=== PATIENT | male | born 1950 | race Caucasian/White ===

== ENCOUNTER 2016-06-22 10:36 | Outpatient (CLI) | payer MEDICARE ==
--- NOTE | 2016-06-22 14:40 | Ultrasound Report ---
Limited abdominal ultrasound: Hepatitis C. Images of the liver and pancreas are unremarkable. The gallbladder is mildly patulous with echogenic material layering on the dependent wall questionable shadowing. The gallbladder wall is not thickened. The CBD measures 4 mm. The right renal length is 10 cm. The kidney appears somewhat echogenic and there is a 1 cm cyst in the superior pole. The transverse diameter of the proximal abdominal aorta is 2.1 cm. Compared to the prior exam in August 2015 the findings appears similar including the gallbladder echogenicity. Impressions: 1. Unremarkable liver. 2. Probable poorly shadowing gallstones.
== END 2016-06-22 10:37 | disposition home or self-care (01) ==
LOC: US 10:36
PROVIDERS: ATTEND Internal Medicine Gastroenterology
DX: B18.2 Chronic viral hepatitis C (principal); E83.119 Hemochromatosis, unspecified; K74.60 Unspecified cirrhosis of liver
CPT/HCPCS: 76705

== ENCOUNTER 2017-02-21 09:48 | Day surgery (SDC) | payer MEDICARE ==
[2017-02-21] MEDS ORDERED: XYLOCAINE MPF 2% ONE (10:30)
--- NOTE | 2017-02-21 10:31 | Anesthesia Consultation ---
Anesthesia Consult and Med Hx Date of service: 02/21/17 - Airway Anesthetic Teeth Evaluation: Poor ROM Head & Neck: Adequate Mental/Hyoid Distance: Adequate Mallampati Class: Class II Intubation Access Assessment: Probably Good - Pulmonary Exam CTA: Yes - Cardiac Exam Cardiac Exam: RRR - Pre-Operative Health Status ASA Pre-Surgery Classification: ASA3 Proposed Anesthetic Plan: MAC - Pulmonary Hx Smoking: Yes (cigars) Hx Asthma: Yes (as a child) COPD: No Hx Pneumonia: Yes Hx Sleep Apnea: Yes - Cardiovascular System Hx Hypertension: Yes (patient states "enlarged heart" - asymptomatic) Hx Peripheral Vascular Disease: No - Central Nervous System Hx Neuromuscular Disorder: No Hx Psychiatric Problems: Yes (anxiety) - Gastrointestinal Hx Gastroesophageal Reflux Disease: No - Endocrine Hx Cirrhosis: Yes Hx Liver Disease: Yes (HEPATITIS C) Hx Non-Insulin Dependent Diabetes: Yes (diet controlled) - Hematic Hx Anemia: Yes Hx Sickle Cell Disease: No - Other Systems Hx Alcohol Use: Yes Hx Substance Use: No Hx Cancer: No Hx Obesity: No
--- NOTE | 2017-02-21 10:31 | Anesthesia Day of Surgery ---
Anesthesia Day of Surgery - Day of Surgery Patient Examined: Yes Patient H&P Reviewed: Yes Patient is NPO: Yes
[2017-02-21] MEDS ORDERED: DIPRIVAN 10 MG/ML IV ONE ×2 (10:33)
[2017-02-21] MEDS ORDERED: NACL 0.9% 1000 ML 1,000 ML IV SCH (11:00)
--- NOTE | 2017-02-21 11:04 | Short Stay Summary ---
Short Stay Documentation Date of service: 02/21/17 Narrative H&P: 66 year old man with cirrhosis due to hepatitis C and history of large esophageal varices. Now for surveillance endoscopy to obliterate varices. - History Past Medical History: diabetes, other (Cirrhosis secondary to hepatitis C. Depression, asthma, anxiety disorder) Past Surgical History: hernia repair Social history: single, Lives alone - Allergies and Medications Current Medications: Allergies ampicillin Allergy (Verified 02/04/14 11:09) Unknown Home Medications Medication Instructions Recorded Confirmed Last Taken Type RX: Ziprasidone HCl [Geodon] 1 cap PO DAILY 03/02/13 04/10/14 02/20/17 21:00 History RX: Folic Acid 1 tab PO DAILY 11/14/13 04/10/14 04/09/14 History 1 tab RX: Lisinopril 1 tab PO DAILY 11/14/13 04/10/14 02/21/17 History RX: Benztropine [Cogentin] 1 mg PO BID 02/04/14 04/10/14 04/09/14 History 1mg Active Medications Sodium Chloride (Nacl 0.9% 1000 Ml) 1,000 mls @ 50 mls/hr IV DIRECT AP - Physical exam General appearance: no acute distress, well-nourished Integumentary: no rash, no growths, no abnormal pigmentation HEENT: Atraumatic, PERRLA, EOMI, Mucous membr. moist/pink Lungs: Clear to auscultation, Normal air movement Breasts: deferred Heart: Regular rate, Normal S1, No murmurs, Murmur Gastrointestinal: normoactive bowel sounds, no tenderness, no masses, no organomegaly, no hepatomegaly, no splenomegaly Male Genitourinary: deferred Rectal Exam: deferred Extremities: no ischemia, pulses intact, pulses symmetrical, No edema, Full ROM Neurological: Normal gait, Normal speech, Strength at 5/5 X4 ext, Normal tone, Sensation intact, Cranial nerves 3-12 NL - Brief post op/procedure progress note Date of procedure: 02/21/17 Findings: see dictated report Estimated blood loss: none Pathology: list (antral biopsies for h .pylori) Specimen disposition: to lab Condition: stable - Disposition Condition at discharge: Good Disposition: DC- TO HOME OR SELFCARE - Discharge Diagnoses (1) Esophageal varices determined by endoscopy Status: Acute (2) Cirrhosis of liver due to hepatitis C Status: Acute Short Stay Discharge Plan Activity: other (no driving for 24 hours) Weight Bearing Status: Weight Bear as Tolerated Diet: other (soft mechanical, advance as tolerated) Follow up with: CAMRON SMITH MD [Primary Care Provider] - 7 Days
--- NOTE | 2017-02-21 11:09 | Operative Report ---
Operative Report Operative Report: Date of procedure: 02/21/2017 Procedure: Esophagogastroduodenoscopy with biopsies of the antrum for H. pylori and banding 5 of distal esophageal varices. Preprocedure diagnosis: History of esophageal varices. Post procedure diagnosis: 3+ esophageal varices some with thin-walled red spots. Small varices in the fundus of the stomach. Portal hypertension gastropathy. Antral gastritis. Endoscopist: Dr. Hidalgo Anesthesia: Monitored anesthesia care per anesthesia department Medications: Propofol per anesthesia. Estimated blood loss: A 0 After careful discussion of the nature and purpose of the procedure as well as details the technique risks benefits and alternatives consent was obtained. The patient was placed in the left lateral decubitus position and medicated per anesthesia. The tip of the [place] 570 video scope was passed per orum under direct vision into the esophagus and advanced into the stomach and descending duodenum. The descending duodenum the duodenal bulb and pylorus were symmetrical and normal. The scope was withdrawn into the stomach and the stomach then gently insufflated with air. The antrum revealed patchy erythema and multiple punctate erosions. 3 biopsies were taken in the prepyloric area for H. pylori testing. The stomach was further insufflated and the scope was then retroflexed and partially withdrawn. The cardia, fundus, and body of the stomach were easily distensible. There was vascular congestion consistent with portal hypertension gastropathy and 1-2+ varices in the fundus of the stomach. The scope was then withdrawn in the forward position. The esophagogastric junction was at 42 cm. 3+ varices were present in the distal third of the esophagus some of which have thin-walled red spots present which were likely reflective of a greater tendency to bleed. There was no active bleeding however at the time of this study. There are small varices in the middle third of the esophagus in the proximal esophagus appeared normal. In light of the large varices and risk for bleeding banding was performed. The scope was initially withdrawn and the banding device loaded. The scope was then reintroduced to the esophagogastric junction and bands placed in a circumferential fashion. 5 bands were placed over all in the distal third of the esophagus. No bleeding was encountered. The procedure was was well tolerated and the patient was observed in recovery. Impressions: 3+ varices in the distal esophagus some of which had red spots and thin rivera. Status post banding. Portal hypertension gastropathy and small varices in the fundus of the stomach. Antral gastritis present. Plan: Await biopsies for H. pylori testing. Continue beta lisa therapy. Repeat endoscopy and banding in 3 months. Electronically signed: Fili Hidalgo MD
[2017-02-21] MEDS ORDERED: WATER FOR IRRIG STERILE IR ONE (11:10)
[2017-02-21 11:35] VITALS: BP 172/87
--- NOTE | 2017-02-21 12:23 | Post Anesthesia Evaluation ---
- Post Anesthesia Evaluation Patient Participated: Yes Airway Patent: Yes Stable Respiratory Function: Yes Nausea/Vomiting: No Temp > 96.8F: Yes Pain Manageable: Yes Adequeate Hydration: Yes Anesthesia Complications: No Block Receding Appropriately: Not Applicable Patient on Ventilator: No
== END 2017-02-21 09:49 | disposition home or self-care (01) ==
LOC: GIO 09:48
PROVIDERS: ATTEND Internal Medicine Gastroenterology
DX: I85.00 Esophageal varices without bleeding (principal); K70.30 Alcoholic cirrhosis of liver without ascites; K76.6 Portal hypertension; K31.89 Other diseases of stomach and duodenum; K29.50 Unspecified chronic gastritis without bleeding; I86.4 Gastric varices; I11.9 Hypertensive heart disease without heart failure; E11.9 Type 2 diabetes mellitus without complications; B19.20 Unspecified viral hepatitis C without hepatic coma; J45.909 Unspecified asthma, uncomplicated; G47.30 Sleep apnea, unspecified; F41.9 Anxiety disorder, unspecified; F32.9 Major depressive disorder, single episode, unspecified; F17.210 Nicotine dependence, cigarettes, uncomplicated; Z98.890 Other specified postprocedural states; Z88.1 Allergy status to other antibiotic agents; Z88.8 Allergy status to other drugs, medicaments and biological substances
CPT/HCPCS: 43239; 43244; 82962; 88305; 88342; J2704

== ENCOUNTER 2017-11-14 09:52 | Day surgery (SDC) | payer MEDICARE ==
[~2017-11-14 09:52] MED LIST: NACL 0.9% 1000 ML 1,000 ML IV SCH
[2017-11-14] MEDS ORDERED: ROBINUL ONE (11:34)
[2017-11-14] MEDS ORDERED: XYLOCAINE MPF 2% ONE (11:42)
[2017-11-14] MEDS ORDERED: WATER FOR IRRIG STERILE IR ONE (12:32)
[2017-11-14] MEDS ORDERED: VERSED ONE (12:34)
[2017-11-14] MEDS ORDERED: DIPRIVAN 10 MG/ML IV ONE (12:34)
--- NOTE | 2017-11-14 12:55 | Short Stay Summary ---
Short Stay Documentation Date of service: 11/14/17 - History H&P: obtained from office - Allergies and Medications Current Medications: Allergies ampicillin Allergy (Verified 02/04/14 11:09) Unknown Home Medications Medication Instructions Recorded Confirmed Last Taken Type Ziprasidone HCl [Geodon] 1 cap PO DAILY 03/02/13 11/14/17 11/13/17 History Lisinopril 1 tab PO DAILY 11/14/13 11/14/17 11/14/17 History Benztropine [Cogentin] 1 mg PO BID 02/04/14 11/14/17 11/13/17 History Active Medications Sodium Chloride (Nacl 0.9% 1000 Ml) 1,000 mls @ 50 mls/hr IV DIRECT AP Last Admin: 11/14/17 11:26 Dose: 50 mls/hr - Brief post op/procedure progress note Date of procedure: 11/14/17 Findings: see dictated report Estimated blood loss: none Pathology: none Condition: stable - Disposition Condition at discharge: Good Disposition: DC-01 TO HOME OR SELFCARE - Discharge Diagnoses (1) Cirrhosis of liver due to hepatitis C Status: Acute (2) Esophageal varices determined by endoscopy Status: Acute Short Stay Discharge Plan Activity: other (no driving for 24 hours) Weight Bearing Status: Weight Bear as Tolerated Diet: regular Follow up with: PRIMARY CARE, [Primary Care Provider] - 7 Days
--- NOTE | 2017-11-14 13:00 | Operative Report ---
Operative Report Operative Report: Date of procedure: 11/14/2017 Procedure: Esophagogastroduodenoscopy with banding of esophageal varices 4 Preprocedure diagnosis: History of large esophageal varices. Cirrhosis. Post procedure diagnosis: 2+ distal esophageal varices. Gastric varices. Mild portal hypertension gastropathy. Endoscopist: Dr. Hidalgo Anesthesia: Monitored anesthesia care per anesthesia department Medications: Propofol per anesthesia. Estimated blood loss: 0 After careful discussion of the nature and purpose of the procedure as well as details the technique risks benefits and alternatives consent was obtained. The patient was placed in the left lateral decubitus position and medicated per anesthesia. The tip of the [employer] 570 video scope was passed per orum under direct vision into the esophagus and advanced into the stomach and descending duodenum. The descending duodenum the duodenal bulb and pylorus were symmetrical and normal. The scope was withdrawn into the stomach and the stomach then gently insufflated with air. The antrum was normal. The stomach was further insufflated and the scope was then retroflexed and partially withdrawn. Small gastric varices were noted in the fundus. The cardia appeared normal. There was mild vascular congestion in the body consistent with portal hypertension gastropathy. The scope was then withdrawn in the forward position. The esophagogastric junction was at 44 cm. 2+ distal esophageal varices were present and several columns. The proximal esophageal body was normal. The scope was withdrawn temporarily and the Olympus banding device loaded. The scope was then reintroduced per orally, under direct vision and advanced into the stomach. The scope was brought back to the EG junction and the distal esophageal variceal columns identified. 4 bands were placed overall in the distal esophagus on top of the varices successfully. No bleeding was encountered. The procedure was was well tolerated and the patient was observed in recovery. Impressions: 2+ distal esophageal varices. Small gastric varices. Portal hypertension gastropathy. Status post banding of esophageal varices 4. Plan: Office follow-up in 3-4 months. Repeat banding in approximately 6 months. Electronically signed: Fili Hidalgo MD
[2017-11-14] MEDS ORDERED: APRESOLINE ONE (13:11)
[2017-11-14] MEDS ORDERED: APRESOLINE IV ONE (13:13)
--- NOTE | 2017-11-14 13:15 | Anesthesia Consultation ---
Anesthesia Consult and Med Hx Date of service: 11/14/17 - Airway Anesthetic Teeth Evaluation: Poor ROM Head & Neck: Adequate Mental/Hyoid Distance: Adequate Mallampati Class: Class II Intubation Access Assessment: Probably Good - Pulmonary Exam CTA: Yes - Cardiac Exam Cardiac Exam: RRR - Pre-Operative Health Status ASA Pre-Surgery Classification: ASA3 Proposed Anesthetic Plan: MAC - Pulmonary Hx Smoking: Yes (former) Hx Asthma: Yes (resolved) Hx Sleep Apnea: Yes (resolved) - Cardiovascular System Hx Hypertension: Yes - Central Nervous System Hx Psychiatric Problems: Yes - Endocrine Hx Cirrhosis: Yes Hx Liver Disease: Yes (HEPATITIS C) Hx Non-Insulin Dependent Diabetes: Yes - Hematic Hx Anemia: Yes - Other Systems Hx Alcohol Use: Yes (Quit )
--- NOTE | 2017-11-14 13:16 | Anesthesia Day of Surgery ---
Anesthesia Day of Surgery - Day of Surgery Patient Examined: Yes Patient H&P Reviewed: Yes Patient is NPO: Yes
[2017-11-14] MEDS ORDERED: NORMODYNE IV NR (13:35)
[2017-11-14] MEDS ORDERED: NORMODYNE IV ONE (13:45)
[2017-11-14 14:58] VITALS: BP 167/96
== END 2017-11-14 09:53 | disposition home or self-care (01) ==
LOC: GIO 09:52
PROVIDERS: ATTEND Internal Medicine Gastroenterology
DX: I85.10 Secondary esophageal varices without bleeding (principal); K74.60 Unspecified cirrhosis of liver; B19.20 Unspecified viral hepatitis C without hepatic coma; K76.6 Portal hypertension; K31.89 Other diseases of stomach and duodenum; I86.4 Gastric varices; F41.9 Anxiety disorder, unspecified; F32.9 Major depressive disorder, single episode, unspecified; J45.909 Unspecified asthma, uncomplicated; G47.33 Obstructive sleep apnea (adult) (pediatric); E11.9 Type 2 diabetes mellitus without complications; I10 Essential (primary) hypertension; Z79.899 Other long term (current) drug therapy; Z88.1 Allergy status to other antibiotic agents; Z87.891 Personal history of nicotine dependence; Z98.890 Other specified postprocedural states; Z83.3 Family history of diabetes mellitus
CPT/HCPCS: 43244; 82962; J0360; J2250; J2704; J7030

== ENCOUNTER 2017-11-14 17:32 | Observation (INO) | payer MEDICARE ==
[2017-11-14] MEDS ORDERED: DILAUDID IV ONE ×2 (18:01→18:55)
[2017-11-14] MEDS ORDERED: ZOFRAN IV ONE (18:01)
[2017-11-14] MEDS ORDERED: NACL 0.9% 1000 ML 1,000 ML IV ONE (18:05)
--- NOTE | 2017-11-14 18:12 | Emergency Department Report ---
HPI - General Chief Complaint: Abdominal Pain Time Seen by Provider: 11/14/17 17:56 - HPI HPI: Room 3 The patient is a 67-year-old male presenting with a chief complaint of acute abdominal pain. The patient states he had an EGD performed by Dr. Hidalgo today and was discharged approximate 14:30. The patient states he went home and laid down on the bed until he felt as though he needed to have a bowel movement. The patient states he walked to the bathroom and was pushing but only a small amount of stool came out. The patient states she went back to his bed and lay down and began having severe diffuse abdominal pain became diaphoretic and felt cold. Patient states she did have an episode of vomiting but it had only consisted of food stuff and there was no hematemesis. Patient denies bright red blood per rectum. The patient gives his pain a score of 10/10 Location: Abdomen Duration: [See above] Quality: "Pain" Severity: 10/10 Modifying factors: [see above] Context: [see above] Mode of transportation: [not driving] ED Past Medical Hx - Past Medical History Hx Hypertension: Yes Hx Diabetes: Yes Hx Liver Disease: Yes (HEPATITIS C) Hx Kidney Stones: Yes Hx Psychiatric Treatment: Yes Hx Asthma: Yes (resolved) Additional medical history: CIRRHOSIS - Surgical History Additional Surgical History: HERNIA REPAIR - Family History Family history: no significant - Social History Smoking Status: Former Smoker (just quit today) Substance Use Type: None (denies illicit drug use), Alcohol (none 5 years) - Medications Home Medications: Home Medications Medication Instructions Recorded Confirmed Last Taken Type Ziprasidone HCl [Geodon] 1 cap PO QPM 03/02/13 11/14/17 11/13/17 History Lisinopril 1 tab PO QAM 11/14/13 11/14/17 11/14/17 History Benztropine [Cogentin] 1 mg PO DAILY 02/04/14 11/14/17 11/13/17 History ED Review of Systems ROS: Stated complaint: ABD PAIN Other details as noted in HPI Constitutional: no symptoms reported Eyes: denies: eye pain ENT: denies: throat pain Respiratory: no symptoms reported Cardiovascular: denies: chest pain Endocrine: no symptoms reported Gastrointestinal: abdominal pain, nausea, vomiting, constipation. denies: hematochezia Genitourinary: denies: dysuria Musculoskeletal: denies: back pain Neurological: denies: headache Physical Exam - Physical Exam Vital Signs: Vital Signs 11/14/17 17:32 Temperature 98.1 F Pulse Rate 116 H Respiratory 26 H Rate Blood Pressure 185/119 O2 Sat by Pulse 94 Oximetry Physical Exam: GENERAL: The patient is well-developed well-nourished male lying on stretcher not appear to be in acute distress. [] HEENT: Normocephalic. Atraumatic. Extraocular motions are intact. Patient has moist mucous membranes. NECK: Supple. Trachea midline CHEST/LUNGS: Clear to auscultation. There is no respiratory distress noted. HEART/CARDIOVASCULAR: Regular. There is no tachycardia. There is no gallop rub or murmur. ABDOMEN: Abdomen is soft, with tenderness to palpation in the midepigastric region. Possible hernia palpated epigastric region.. Patient has normal bowel sounds. There is no abdominal distention. SKIN: There is no rash. There is no edema. There is no diaphoresis. NEURO: The patient is awake, alert, and oriented. The patient is cooperative. The patient has normal speech MUSCULOSKELETAL: There is no evidence of acute injury. ED Course Vital Signs 11/14/17 17:32 Temperature 98.1 F Pulse Rate 116 H Respiratory 26 H Rate Blood Pressure 185/119 O2 Sat by Pulse 94 Oximetry - Reevaluation(s) Reevaluation #1: 11/14/17 18:56 Attempted to reduce possible epigastric hernia. No definite resolution palpated - Consultations Consultation #1: 11/14/17 18:08 Gastroenterology paged 11/14/17 18:[address] Koenig- recommends covering for SBP if there is ascites present on CT. 11/14/17 20:34 GI paged 11/14/17 20:[address] Koenig- do not recommend anticoagulation at this time given the recent variceal banding. Will make determination after evaluation ED Medical Decision Making - Lab Data Result diagrams: 11/14/17 18:34 11/14/17 18:34 Laboratory Tests 11/14/17 11/14/17 11/14/17 18:34 18:34 18:34 WBC 10.6 RBC 4.65 Hgb 15.2 Hct 44.3 MCV 95 H MCH 33 H MCHC 34 RDW 13.6 Plt Count 155 Lymph % (Auto) 10.2 L [place] % (Auto) 7.0 Eos % (Auto) 0.7 Baso % (Auto) 0.3 Lymph # 1.1 L [place] # 0.7 Eos # 0.1 Baso # 0.0 Seg Neutrophils % 81.8 H Seg Neutrophils # 8.7 H PT 14.6 INR 1.08 APTT 33.0 Sodium 138 Potassium 4.0 Chloride 107.2 H Carbon Dioxide 18 L Anion Gap 17 BUN 15 Creatinine 0.9 Estimated GFR > 60 BUN/Creatinine Ratio 17 Glucose 139 H Calcium 9.3 Total Bilirubin 1.20 AST 30 ALT 26 Alkaline Phosphatase 74 Total Protein 7.8 Albumin 4.2 Albumin/Globulin Ratio 1.2 Lipase 32 Blood Type Antibody Screen 11/14/17 18:34 WBC RBC Hgb Hct MCV MCH MCHC RDW Plt Count Lymph % (Auto) [place] % (Auto) Eos % (Auto) Baso % (Auto) Lymph # [place] # Eos # Baso # Seg Neutrophils % Seg Neutrophils # PT INR APTT Sodium Potassium Chloride Carbon Dioxide Anion Gap BUN Creatinine Estimated GFR BUN/Creatinine Ratio Glucose Calcium Total Bilirubin AST ALT Alkaline Phosphatase Total Protein Albumin Albumin/Globulin Ratio Lipase Blood Type O NEGATIVE Antibody Screen Negative - Radiology Data Radiology results: report reviewed (CT abdomen and pelvis), image reviewed (CT abdomen and pelvis, chest x-ray) interpreted by me: Upright chest x-ray-no free air [facility] [address] [place] [address] Cat Scan Report Signed Patient: GIGI RIOS MR#: [id number] : 1950 Acct:[id number] Age/Sex: 67 / M ADM Date: 11/14/17 Loc: ED Attending Dr: Ordering Physician: CARRIE HYMAN MD Date of Service: 11/14/17 Procedure(s): CT abdomen pelvis w con Accession Number(s): [id number] cc: CARRIE HYMAN MD FINAL REPORT EXAM: CT ABDOMEN PELVIS W CON HISTORY: acute epigastric pain. EGD performed earlier toda TECHNIQUE: Following IV administration of 100 cc of Omnipaque 300 axial helical imaging was performed through the abdomen and pelvis with sagittal and coronal reformatted images obtained. Delayed axial helical imaging was also performed through the abdomen and pelvis. Comparison: None FINDINGS: The lung bases are without infiltrate, pneumothorax or pleural fluid collection. The heart appears to be enlarged. The visualized portion the mid and distal esophagus is distended and contains heterogeneous contents. There is an abrupt change in caliber of the esophagus which is diminutive in size at the gastroesophageal junction. The liver is cirrhotic in appearance. There is evidence of portal systemic collateral flow. There is a filling defect in the main portal vein consistent with portal vein thrombosis. The spleen, pancreas and adrenal glands are unremarkable in appearance. There are multiple stones in the renal pelvis bilaterally. There is no evidence of hydronephrosis. The gallbladder is moderately to markedly distended and contains gallstones. The bowel is normal caliber. There is no evidence of pneumoperitoneum or free fluid. The abdominal aorta is normal caliber. There is atherosclerotic vascular calcification of the large and medium caliber arteries. The urinary bladder is moderately to markedly distended. The prostate gland is enlarged and heterogeneous in appearance with maximal axial dimension of 5.4 centimeters. There is a small left inguinal hernia that contains fat. The bony structures are notable for a compression fracture of the L4 vertebral body with greater than 50 percent loss of height. This is of indeterminate age but not definitively acute. There is multiple level canal stenosis in the lumbar spine secondary to spondylitic change. This appears to be moderate to marked in degree at the L4-L5 level. There is a small periumbilical hernia that contains fat. IMPRESSION: 1. Evidence of portal vein thrombosis. 2. Cirrhosis with portal systemic collateral flow consistent with portal venous hypertension. 3. Distension of the visualized portion the mid and distal esophagus which contains heterogeneous contents with an abrupt change in caliber at the gastroesophageal junction. 4. Moderate to marked distention of the gallbladder which contains gallstones. 5. Moderate to marked distention of the urinary bladder. 6. Enlarged heterogeneous prostate gland. 7. Compression fracture L4 vertebral body that is of indeterminate age but not definitively acute. 8. Small periumbilical hernia and small left inguinal hernia that contain fat. 9. Nonobstructing stones renal pelvis bilaterally. 10. Cardiomegaly. The finding of portal vein thrombosis was discussed with Dr. Hyman at 8:35 p.m. November 14, 2017. Transcribed By: ED Dictated By: ELMER ORLANDO MD Electronically Authenticated By: ELMER ORLANDO MD Signed Date/Time: 11/14/172036 DD/ 36 TD/TT: 11/14/172036 - Differential Diagnosis bowel perforation, hernia Critical care attestation.: If time is entered above; I have spent that time in minutes in the direct care of this critically ill patient, excluding procedure time. ED Disposition Clinical Impression: Portal vein thrombosis, Acute abdominal pain Disposition: OP ADMIT IP TO THIS HOSP Is pt being admited?: Yes Does the pt Need Aspirin: No Condition: Fair Time of Disposition: 21:00 (hospitalist paged (Dr Maynard))
--- NOTE | 2017-11-14 18:22 | XRay Report ---
FINAL REPORT EXAM: XR CHEST 1V AP HISTORY: acute abdominal pain status post endoscopy TECHNIQUE: Frontal portable view of the chest Comparison: None FINDINGS: There is prominence of the interstitial markings in both lungs, acute versus chronic. In the proper clinical setting this may represent changes of interstitial edema. There is no evidence of focal infiltrate. There blunting of the costophrenic angles bilaterally which may represent small pleural effusions. There is no evidence of pneumothorax. The cardiac silhouette is enlarged. The thoracic aorta is mildly tortuous. The bony structures are unremarkable. Visualization detail of the thoracic spine is limited. The visualized portion the upper abdomen is notable for distended air-filled loops of bowel. IMPRESSION: 1. Prominence of the interstitial markings, acute versus chronic. In the proper clinical setting this may represent changes of interstitial edema. 2. Possible small bilateral pleural fluid collections. 3. Enlarged cardiac silhouette. With the above constellation of findings, CHF needs to be considered.
[2017-11-14 18:53] LABS: Basophils % (Auto) 0.3 % (0.0-1.8); Eosinophils # (Auto) 0.1 K/mm3 (0.0-0.4); Eosinophils % (Auto) 0.7 % (0.0-4.3); Hematocrit 44.3 % (35.5-45.6); Hemoglobin 15.2 gm/dl (11.8-15.2); Lymphocytes # (Auto) 1.1 K/mm3 (1.2-5.4); Lymphocytes % (Auto) 10.2 % (13.4-35.0); Mean Corpuscular HGB Conc 34 % (32-34); Mean Corpuscular Hemoglobin 33 pg (28-32); Mean Corpuscular Volume 95 fl (84-94); Monocytes # (Auto) 0.7 K/mm3 (0.0-0.8); Platelet Count 155 K/mm3 (140-440); Red Blood Count 4.65 M/mm3 (3.65-5.03); Red Cell Distribution Width 13.6 % (13.2-15.2)
[2017-11-14 19:06] LABS: INR 1.08 (0.87-1.13)
[2017-11-14 19:17] LABS: Alanine Aminotransferase 26 units/L (7-56); Albumin 4.2 g/dL (3.9-5); BUN/Creatinine Ratio 17; Blood Urea Nitrogen 15 mg/dL (9-20); Calcium 9.3 mg/dL (8.4-10.2); Hemolysis Index 8; Lipase 32 units/L (13-60)
[2017-11-14] MEDS ORDERED: CATAPRES PO ONE (19:26)
--- NOTE | 2017-11-14 20:39 | Cat Scan Report ---
FINAL REPORT EXAM: CT ABDOMEN PELVIS W CON HISTORY: acute epigastric pain. EGD performed earlier toda TECHNIQUE: Following IV administration of 100 cc of Omnipaque 300 axial helical imaging was performed through the abdomen and pelvis with sagittal and coronal reformatted images obtained. Delayed axial helical imaging was also performed through the abdomen and pelvis. Comparison: None FINDINGS: The lung bases are without infiltrate, pneumothorax or pleural fluid collection. The heart appears to be enlarged. The visualized portion the mid and distal esophagus is distended and contains heterogeneous contents. There is an abrupt change in caliber of the esophagus which is diminutive in size at the gastroesophageal junction. The liver is cirrhotic in appearance. There is evidence of portal systemic collateral flow. There is a filling defect in the main portal vein consistent with portal vein thrombosis. The spleen, pancreas and adrenal glands are unremarkable in appearance. There are multiple stones in the renal pelvis bilaterally. There is no evidence of hydronephrosis. The gallbladder is moderately to markedly distended and contains gallstones. The bowel is normal caliber. There is no evidence of pneumoperitoneum or free fluid. The abdominal aorta is normal caliber. There is atherosclerotic vascular calcification of the large and medium caliber arteries. The urinary bladder is moderately to markedly distended. The prostate gland is enlarged and heterogeneous in appearance with maximal axial dimension of 5.4 centimeters. There is a small left inguinal hernia that contains fat. The bony structures are notable for a compression fracture of the L4 vertebral body with greater than 50 percent loss of height. This is of indeterminate age but not definitively acute. There is multiple level canal stenosis in the lumbar spine secondary to spondylitic change. This appears to be moderate to marked in degree at the L4-L5 level. There is a small periumbilical hernia that contains fat. IMPRESSION: 1. Evidence of portal vein thrombosis. 2. Cirrhosis with portal systemic collateral flow consistent with portal venous hypertension. 3. Distension of the visualized portion the mid and distal esophagus which contains heterogeneous contents with an abrupt change in caliber at the gastroesophageal junction. 4. Moderate to marked distention of the gallbladder which contains gallstones. 5. Moderate to marked distention of the urinary bladder. 6. Enlarged heterogeneous prostate gland. 7. Compression fracture L4 vertebral body that is of indeterminate age but not definitively acute. 8. Small periumbilical hernia and small left inguinal hernia that contain fat. 9. Nonobstructing stones renal pelvis bilaterally. 10. Cardiomegaly. The finding of portal vein thrombosis was discussed with Dr. Alvarez at 8:35 p.m. November 14, 2017.
[2017-11-14] MEDS ORDERED: ZOFRAN IV PRN (22:00)
[2017-11-14] MEDS ORDERED: DILAUDID IV PRN (22:01)
[2017-11-14] MEDS ORDERED: D50W (25GM) Syringe IV PRN (22:03)
[2017-11-15] MEDS: HumuLIN R SUB-Q SCH ×3 (00:50→11:48)
--- NOTE | 2017-11-15 06:06 | History and Physical Report ---
CHIEF COMPLAINT: Abdominal pain. HISTORY OF PRESENT ILLNESS: The patient is a 67-year-old male, who had EGD done on 11/14/2017 and was discharged in the afternoon after EGD and went back and started having abdominal pain after he said he laid on his bed. The patient told he felt like he needed to move his bowel and went to the bathroom and moved only a small amount of stool and the pain became worse and he later on developed diaphoresis and felt cold and had an episode of vomiting. There was no history of hematemesis or hematochezia and there was no history of fever. Also, the patient denied history of chest pain or shortness of breath and presented to the Emergency Room. PAST MEDICAL HISTORY: Pertinent for hypertension, diabetes mellitus, hepatitis C, kidney stones, cirrhosis of the liver. Also, the patient has a past history of asthma and some psychiatric illness. PAST SURGICAL HISTORY: Pertinent for hernia repair and EGD. FAMILY HISTORY: Noncontributory. SOCIAL HISTORY: The patient smokes cigarettes. He said he just quit yesterday on 11/14/2017. The patient does not use illicit drugs and stopped drinking alcohol about 5 years ago. MEDICATIONS: The patient is on Geodon 1 capsule by mouth every night, lisinopril one tablet by mouth daily, Cogentin 1 mg by mouth daily. ALLERGIES: THE PATIENT IS ALLERGIC TO AMPICILLIN. REVIEW OF SYSTEMS: CONSTITUTIONAL: There is no fever, no chills. Diaphoresis present. HEENT: There is no headache or sore throat. CARDIOVASCULAR: There is no chest pain or orthopnea. RESPIRATORY: There is no shortness of breath or cough. GASTROINTESTINAL: Abdominal pain is present. Nausea, vomiting and diarrhea present. No constipation. NEUROLOGICAL: There is no numbness, no dizziness, no altered mental status. MUSCULOSKELETAL: There is no joint pain or swelling. DERMATOLOGICAL: There is no skin rash or itching. GENITOURINARY: There is no dysuria, hematuria or flank pain. Rest of system review is normal. PHYSICAL EXAMINATION: GENERAL: At the time of exam, the patient was found to be alert, oriented x 3 and not in acute distress. VITAL SIGNS: At the initial presentation showed temperature of 98.1 degrees Fahrenheit, pulse of 116, respirations 26. Blood pressure was 185/119, O2 sat of 94% on room air. HEENT: Pupils to be equal, round, reactive to light and accommodating. Extraocular muscles are intact. NECK: Supple with no JVD or carotid bruit. CARDIOVASCULAR: Showed normal first and second heart sounds with no gallops or murmurs. RESPIRATORY SYSTEM: Show good air entry on both sides of the lungs with no abnormal breath sounds. GASTROINTESTINAL SYSTEM: Show abdomen to be soft, full, nontender with no organomegaly or rigidity. NEUROLOGIC: Shows no focal deficit. MUSCULOSKELETAL SYSTEM: Show no joint swelling or tenderness. DERMATOLOGICAL: Showing no skin rash. GENITOURINARY: Showing costovertebral angle tenderness. PERTINENT LABS AND IMAGING STUDIES: The patient has CT of the abdomen and pelvis done with contrast, which shows evidence of portal vein thrombosis and cirrhosis with portosystemic collateral flow consistent with portal hypertension. There is distention of the visualized portion of the mid and distal esophagus, which contains heterogeneous content with an abrupt change in caliber at the gastroesophageal junction. There is also finding of moderate to marked distention of the gallbladder with stones and moderate to mild distention of the urinary bladder. There is also finding of enlarged heterogeneous prostate gland and finding of compression pressure at L4 vertebral body with indeterminate age, which the radiologist say is not acute. There is finding of small periumbilical hernia and small left inguinal hernia that contains fat and also finding of non-obstructing stones in the renal pelvis bilaterally with also finding of cardiomegaly. The patient had a chest x-ray done that shows prominence of the interstitial markings acute vessels chronic and the radiologist say that in the proper clinical setting, this may represent changes of interstitial edema. There is possible small bilateral pleural effusion collection and enlarged cardiac silhouette. The patient's lab results shows CBC with normal white count, normal hemoglobin and normal hematocrit with CBC differential showing elevated segmented neutrophil of 81.8%. The patient's chemistry showed normal sodium, normal potassium with elevated chloride level of 107.2 and rest of chemistry was unremarkable. DIAGNOSES: 1. Abdominal pain. 2. Portal vein thrombosis. PLAN: The patient will be admitted to medical/surgical floor as requested by the rehabilitation assistant, Dr. Sanford Koenig, who was consulted by the Emergency Room physician. The patient will not be placed on any anticoagulant as requested by the rehabilitation assistant and will remain n.p.o. for possible intervention by the rehabilitation assistant. The patient will be on IV Zofran 4 mg every 8 hours as needed for nausea and vomiting and IV Dilaudid 1 mg every 4 hours as needed for pain. The patient will be on Accu-Chek q. 6 hours followed by low-dose sliding scale using regular insulin coverage. The patient will continue the Gastroenterology consult with Dr. Sanford Koenig. JOB# [id number] OCN/NTS
[2017-11-15 07:51] VITALS: BP 146/74
--- NOTE | 2017-11-15 09:15 | Gastroenterology Consultation ---
History of Present Illness - Reason for Consult Consult date: 11/15/17 abdominal pain s/p EGD, PV thrombosis Requesting physician: FAIZA SEGAL - History of Present Illness Patient is a 67 y/o male with PMH of HTN, DM, cirrhosis, hepatitis C, esophageal varices, and kidney stones who presented to ED yesterday with c/o periumbilical abdominal pain s/p an EGD with esophageal varices banded by Dr. Hidalgo. Abd CT upon admission showed a portal vein thrombosis to which GI has been consulted. Patient is well known to our service. He has a hx of cirrhosis 2 /2 hepatitis C and suspected hemochromatosis (followed by Dr. MORRIS). His HCV has been treated successfully (approximately 4 years ago on Harvoni; HCV RNA undetected 2016) and he has been stable for the past couple of years. This morning patient was sitting up on the side of the bed w/o acute distress. He reports feeling better with abd pain improved and states he would like to be d/ c as soon as possible so he can go to work to prevent losing his job. Denies CP , SOB, jaundice, N/V, or signs of bleeding. Past History Past Medical History: diabetes, hypertension, liver disease (cirrhosis), other ( kidney stones) Past Surgical History: hernia repair, Other (esophageal varices banded) Social history: smoking, other (no alcohol x 5 years) Medications and Allergies Allergies Allergy/AdvReac Type Severity Reaction Status Date / Time ampicillin Allergy Unknown Verified 02/04/14 11:09 Home Medications Medication Instructions Recorded Confirmed Last Taken Type Ziprasidone HCl [Geodon] 1 cap PO QPM 03/02/13 11/14/17 11/13/17 History Lisinopril 1 tab PO QAM 11/14/13 11/14/17 11/14/17 History Benztropine [Cogentin] 1 mg PO DAILY 02/04/14 11/14/17 11/13/17 History Active Meds: Active Medications Dextrose (D50w (25gm) Syringe) 50 ml IV PRN PRN PRN Reason: Hypoglycemia Hydromorphone HCl (Dilaudid) 1 mg IV Q4H PRN PRN Reason: Pain , Severe (7-10) Insulin Human Regular (Humulin R) 0 units SUB-Q Q6HR AP; Protocol Last Admin: 11/15/17 06:31 Dose: Not Given Ondansetron HCl (Zofran) 4 mg IV Q8H PRN PRN Reason: Nausea And Vomiting Review of Systems - Review of Systems All systems: negative Gastrointestinal: abdominal pain Exam - Constitutional Vital Signs: Temp Pulse Resp BP Pulse Ox 98.1 F 56 L 16 146/74 96 11/15/17 07:50 11/15/17 07:50 11/15/17 07:50 11/15/17 07:50 11/15/17 07:50 General appearance: no acute distress - EENT Eyes: PERRL, EOM intact ENT: hearing intact - Respiratory Respiratory: bilateral: CTA - Cardiovascular Rhythm: regular Heart Sounds: Present: S1 & S2 - Gastrointestinal General gastrointestinal: Present: soft, non-tender, non-distended, normal bowel sounds - Neurologic Neurological: alert and oriented x3 - Labs CBC & Chem 7: 11/14/17 18:34 11/14/17 18:34 Lab Results: Laboratory Results - last 24 hr 11/14/17 11/14/17 11/14/17 18:34 18:34 18:34 WBC 10.6 RBC 4.65 Hgb 15.2 Hct 44.3 MCV 95 H MCH 33 H MCHC 34 RDW 13.6 Plt Count 155 Lymph % (Auto) 10.2 L Wallace % (Auto) 7.0 Eos % (Auto) 0.7 Baso % (Auto) 0.3 Lymph # 1.1 L Wallace # 0.7 Eos # 0.1 Baso # 0.0 Seg Neutrophils % 81.8 H Seg Neutrophils # 8.7 H PT 14.6 INR 1.08 APTT 33.0 Sodium 138 Potassium 4.0 Chloride 107.2 H Carbon Dioxide 18 L Anion Gap 17 BUN 15 Creatinine 0.9 Estimated GFR > 60 BUN/Creatinine Ratio 17 Glucose 139 H POC Glucose Calcium 9.3 Total Bilirubin 1.20 AST 30 ALT 26 Alkaline Phosphatase 74 Total Protein 7.8 Albumin 4.2 Albumin/Globulin Ratio 1.2 Lipase 32 Blood Type Antibody Screen 11/14/17 11/15/17 11/15/17 18:34 00:32 06:30 WBC RBC Hgb Hct MCV MCH MCHC RDW Plt Count Lymph % (Auto) Wallace % (Auto) Eos % (Auto) Baso % (Auto) Lymph # Wallace # Eos # Baso # Seg Neutrophils % Seg Neutrophils # PT INR APTT Sodium Potassium Chloride Carbon Dioxide Anion Gap BUN Creatinine Estimated GFR BUN/Creatinine Ratio Glucose POC Glucose 93 78 Calcium Total Bilirubin AST ALT Alkaline Phosphatase Total Protein Albumin Albumin/Globulin Ratio Lipase Blood Type O NEGATIVE Antibody Screen Negative Assessment and Plan 1.abdominal pain 2.portal vein thrombosis 3.h/o cirrhosis w/esophageal varices -afebrile -WBC WNL -H/H 15.2/44.3 -plt 155, INR 1.08 -LFTs and lipase- WNL -Patient with a hx of cirrhosis 2/2 hep C (s/p treatment; HCV RNA undetected 2016) and suspected hemochromatosis who underwent an EGD yesterday (revealed 2+ distal esophageal varices, small gastric varices, and mild portal hypertension gastropathy) with esophageal varices banded x [address] Hidalgo and then developed an acute onset of periumbilical abd pain -abd CT showed portal vein thrombosis -clinically, patient is stable and reports abd pain is now improved. No N/V or signs of bleeding -will order a Doppler ultrasound to for further evaluation to confirm PV thrombosis -recommend vascular consult given anticoagulation is contraindicated at this time due to recent esophageal banding -continue supportive care -further recommendations to follow
--- NOTE | 2017-11-15 09:51 | Consultation ---
History of Present Illness - Reason for Consult Consult date: 11/15/17 Portal vein thrombus - History of Present Illness Patient with a history of cirrhosis, esophageal gastric varices who presents with epigastric abdominal pain. On his initial CT scan, the patient was noted to have decreased contrast opacification in the main portal vein just at confluence of SMV and splenic vein. SMV is poorly opacified. Patient's symptoms have resolved. Past History Past Medical History: diabetes, hypertension, liver disease (cirrhosis), other ( kidney stones) Past Surgical History: hernia repair, Other (esophageal varices banded) Social history: smoking, other (no alcohol x 5 years) Medications and Allergies Allergies Allergy/AdvReac Type Severity Reaction Status Date / Time ampicillin Allergy Unknown Verified 02/04/14 11:09 Home Medications Medication Instructions Recorded Confirmed Last Taken Type Ziprasidone HCl [Geodon] 1 cap PO QPM 03/02/13 11/14/17 11/13/17 History Lisinopril 1 tab PO QAM 11/14/13 11/14/17 11/14/17 History Benztropine [Cogentin] 1 mg PO DAILY 02/04/14 11/14/17 11/13/17 History Active Meds: Active Medications Dextrose (D50w (25gm) Syringe) 50 ml IV PRN PRN PRN Reason: Hypoglycemia Hydromorphone HCl (Dilaudid) 1 mg IV Q4H PRN PRN Reason: Pain , Severe (7-10) Insulin Human Regular (Humulin R) 0 units SUB-Q Q6HR AP; Protocol Last Admin: 11/15/17 06:31 Dose: Not Given Ondansetron HCl (Zofran) 4 mg IV Q8H PRN PRN Reason: Nausea And Vomiting Review of Systems All systems: negative Exam - Constitutional Vitals: Temp Pulse Resp BP Pulse Ox 98.1 F 56 L 16 146/74 96 11/15/17 07:50 11/15/17 07:50 11/15/17 07:50 11/15/17 07:50 11/15/17 07:50 General appearance: Present: no acute distress - EENT Eyes: Present: PERRL, EOM intact ENT: hearing intact - Neck Neck: Present: supple, normal ROM - Respiratory Respiratory effort: normal - Extremities Extremities: Full ROM - Abdominal General gastrointestinal: Present: soft Male genitourinary: Present: deferred - Rectal Rectal Exam: deferred - Integumentary Integumentary: Present: clear - Psychiatric Psychiatric: appropriate mood/affect, cooperative - Neurologic Neurologic: no focal deficits Results - Labs CBC & Chem 7: 11/14/17 18:34 11/14/17 18:34 Labs: Abnormal lab results 11/14/17 11/14/17 Range/Units 18:34 18:34 MCV 95 H (84-94) fl MCH 33 H (28-32) pg Lymph % (Auto) 10.2 L (13.4-35.0) % Lymph # 1.1 L (1.2-5.4) K/mm3 Seg Neutrophils % 81.8 H (40.0-70.0) % Seg Neutrophils # 8.7 H (1.8-7.7) K/mm3 Chloride 107.2 H (98-107) mmol/L Carbon Dioxide 18 L (22-30) mmol/L Glucose 139 H (75-100) mg/dL - Imaging and Cardiology CT scan - abdomen: report reviewed, image reviewed CT scan - pelvis: report reviewed, image reviewed Assessment and Plan Patient with decreased opacification in the portal vein just distal to the confluence of SMV and splenic vein. This may be mixing artifact. Patient is scheduled to get an abdominal ultrasound with evaluation of his hepatic and portal veins today. His abdominal ultrasound demonstrates no thrombus within the portal vein. The patient may be discharged home without anticoagulation.
--- NOTE | 2017-11-15 11:49 | Progress Note ---
Assessment and Plan Assessment and plan: Abdominal pain. Abd CT upon admission showed a portal vein thrombosis. EGD yesterday revealed 2+ distal esophageal varices, small gastric varices, and mild portal hypertension gastropathy with esophageal varices banded x [address] Hidalgo Cirrhosis. Etiology secondary to hepatitis C as suspected hemachromatosis. GI following. Portal vein thrombosis. Follow-up Doppler ultrasound. Vascular consultation given anticoagulation is contraindicated at this time due to recent esophageal banding Hepatitis C. s/p treatment; HCV RNA undetected 2017 Hemachromatosis. Per GI Diabetes mellitus type 2. Accu-Cheks and sliding scale. Hypertension. Continue antihypertensive medications. Esophageal varices. Etiology secondary to above. History kidney stones. History Interval history: No new issues overnight Hospitalist Physical - Constitutional Vitals: Temp Pulse Resp BP Pulse Ox 98.1 F 56 L 18 146/74 96 11/15/17 07:50 11/15/17 07:50 11/15/17 10:00 11/15/17 07:50 11/15/17 10:00 General appearance: Present: no acute distress - EENT Eyes: Present: PERRL, EOM intact ENT: hearing intact, clear oral mucosa, dentition normal - Neck Neck: Present: supple, normal ROM - Respiratory Respiratory effort: normal Respiratory: bilateral: CTA - Cardiovascular Rhythm: regular Heart Sounds: Present: S1 & S2. Absent: gallop, rub - Extremities Extremities: no ischemia, No edema, Full ROM - Abdominal General gastrointestinal: soft, non-tender, non-distended, normal bowel sounds - Integumentary Integumentary: Present: clear, warm, dry - Neurologic Neurologic: CNII-XII intact, moves all extremities Results - Labs CBC & Chem 7: 11/14/17 18:34 11/14/17 18:34 Labs: Laboratory Last Values WBC 10.6 K/mm3 (4.5-11.0) 11/14/17 18:34 RBC 4.65 M/mm3 (3.65-5.03) 11/14/17 18:34 Hgb 15.2 gm/dl (11.8-15.2) 11/14/17 18:34 Hct 44.3 % (35.5-45.6) 11/14/17 18:34 MCV 95 fl (84-94) H 11/14/17 18:34 MCH 33 pg (28-32) H 11/14/17 18:34 MCHC 34 % (32-34) 11/14/17 18:34 RDW 13.6 % (13.2-15.2) 11/14/17 18:34 Plt Count 155 K/mm3 (140-440) 11/14/17 18:34 Lymph % (Auto) 10.2 % (13.4-35.0) L 11/14/17 18:34 [place] % (Auto) 7.0 % (0.0-7.3) 11/14/17 18:34 Eos % (Auto) 0.7 % (0.0-4.3) 11/14/17 18:34 Baso % (Auto) 0.3 % (0.0-1.8) 11/14/17 18:34 Lymph # 1.1 K/mm3 (1.2-5.4) L 11/14/17 18:34 [place] # 0.7 K/mm3 (0.0-0.8) 11/14/17 18:34 Eos # 0.1 K/mm3 (0.0-0.4) 11/14/17 18:34 Baso # 0.0 K/mm3 (0.0-0.1) 11/14/17 18:34 Seg Neutrophils % 81.8 % (40.0-70.0) H 11/14/17 18:34 Seg Neutrophils # 8.7 K/mm3 (1.8-7.7) H 11/14/17 18:34 PT 14.6 Sec. (12.2-14.9) 11/14/17 18:34 INR 1.08 (0.87-1.13) 11/14/17 18:34 APTT 33.0 Sec. (24.2-36.6) 11/14/17 18:34 Sodium 138 mmol/L (137-145) 11/14/17 18:34 Potassium 4.0 mmol/L (3.6-5.0) 11/14/17 18:34 Chloride 107.2 mmol/L (98-107) H 11/14/17 18:34 Carbon Dioxide 18 mmol/L (22-30) L 11/14/17 18:34 Anion Gap 17 mmol/L 11/14/17 18:34 BUN 15 mg/dL (9-20) 11/14/17 18:34 Creatinine 0.9 mg/dL (0.8-1.5) 11/14/17 18:34 Estimated GFR > 60 ml/min 11/14/17 18:34 BUN/Creatinine Ratio 17 % 11/14/17 18:34 Glucose 139 mg/dL (75-100) H 11/14/17 18:34 POC Glucose 78 (70-105) 11/15/17 06:30 Calcium 9.3 mg/dL (8.4-10.2) 11/14/17 18:34 Total Bilirubin 1.20 mg/dL (0.1-1.2) 11/14/17 18:34 AST 30 units/L (5-40) 11/14/17 18:34 ALT 26 units/L (7-56) 11/14/17 18:34 Alkaline Phosphatase 74 units/L (35-129) 11/14/17 18:34 Total Protein 7.8 g/dL (6.3-8.2) 11/14/17 18:34 Albumin 4.2 g/dL (3.9-5) 11/14/17 18:34 Albumin/Globulin Ratio 1.2 % 11/14/17 18:34 Lipase 32 units/L (13-60) 11/14/17 18:34 Blood Type O NEGATIVE 11/14/17 18:34 Antibody Screen Negative 11/14/17 18:34
--- NOTE | 2017-11-15 12:07 | Event Note ---
Date: 11/15/17 Doppler negative for thrombosis. Okay to start diet. Patient is okay to be d/c per GI standpoint with follow up in clinic in 3-4 weeks. Will sign off, please call if needed.
--- NOTE | 2017-11-15 12:57 | Discharge Summary ---
Providers - Providers Date of Admission: 11/14/17 21:52 Date of discharge: 11/15/17 Attending physician: TALAT LITTLE 11/15/17 09:45 Consult to Physician [CONS] Routine Comment: spoke to dr. miller/tyrell Consulting Provider: FRANKLIN MILLER Physician Instructions: consult vascular Reason For Exam: portal vein thrombosis 11/15/17 21:54 Consult to Physician [CONS] Routine Comment: spoke to zohra Consulting Provider: CAMRON ARMENTA Physician Instructions: Reason For Exam: POST EGD ABDO PAIN WITH PORTAL VEIN THROMBOSIS Primary care physician: PURCHASING OFFICER Hospitalization Condition: Fair Hospital course: This is a 67-year-old male presented through the emergency department with complaints of Abdominal pain. Abd CT upon admission showed a portal vein thrombosis. Patient underwent outpatient EGD yesterday revealed 2+ distal esophageal varices, small gastric varices, and mild portal hypertension gastropathy with esophageal varices banded x [address] Hidalgo. Patient has a past medical history of Cirrhosis with Etiology secondary to hepatitis C and suspected hemachromatosis. GI and vascular surgery saw the patient in consultation and they recommended a Doppler ultrasound. Doppler ultrasounds found to be negative. GI reported that the patient could be discharged home with no medications. Dedicated discharge time 32 minutes. Disposition: - TO HOME OR SELFCARE Time spent for discharge: 32 - Discharge Diagnoses (1) Acute abdominal pain Status: Acute (2) Portal vein thrombosis Status: Acute (3) Cirrhosis of liver due to hepatitis C Status: Acute (4) Esophageal varices determined by endoscopy Status: Acute Core Measure Documentation - Palliative Care Palliative Care/ Comfort Measures: Not Applicable - Core Measures Any of the following diagnoses?: none Exam - Constitutional Vitals: Temp Pulse Resp BP Pulse Ox 98.1 F 56 L 18 146/74 96 11/15/17 07:50 11/15/17 07:50 11/15/17 10:00 11/15/17 07:50 11/15/17 10:00 General appearance: Present: no acute distress, well-nourished - EENT Eyes: Present: PERRL ENT: hearing intact, clear oral mucosa - Neck Neck: Present: supple, normal ROM - Respiratory Respiratory effort: normal Respiratory: bilateral: CTA - Cardiovascular Heart Sounds: Present: S1 & S2. Absent: rub, click - Extremities Extremities: pulses symmetrical, No edema Peripheral Pulses: within normal limits - Abdominal General gastrointestinal: Present: soft, non-tender, non-distended, normal bowel sounds Male genitourinary: Present: normal - Integumentary Integumentary: Present: clear, warm, dry - Musculoskeletal Musculoskeletal: gait normal, strength equal bilaterally - Psychiatric Psychiatric: appropriate mood/affect, intact judgment & insight - Neurologic Neurologic: CNII-XII intact, moves all extremities Plan Activity: no restrictions Weight Bearing Status: Full Weight Bearing Diet: regular Follow up with: PRIMARY CARE, [Primary Care Provider] - 3-5 Days
--- NOTE | 2017-11-15 14:47 | Vascular Lab Report ---
Hepatic vascular duplex Reason for exam: Abdominal pain and portal vein thrombosis on CT scan Comments: The hepatic veins appear to be patent. No evidence of intraluminal thrombus is identified. The portal vein appears to be patent. Flow within the portal vein appears to be appropriately directed toward the liver. The portal vein appears to be dilated at 1.29 cm. The hepatic artery is patent with a flow velocity of 20 cm/s. Impression: This study does not support the presence of portal vein thrombosis.
== END 2017-11-15 13:00 | disposition home or self-care (01) ==
LOC: ED 17:32 → 2B-ACE 21:52
PROVIDERS: ADMIT Internal Medicine; ATTEND Hospitalist
DX: R10.9 Unspecified abdominal pain (principal); I81 Portal vein thrombosis; I10 Essential (primary) hypertension; E11.9 Type 2 diabetes mellitus without complications; J45.909 Unspecified asthma, uncomplicated
CPT/HCPCS: 36415; 71045; 74177; 80053; 82962; 83690; 85025; 85610; 85730; 86850; 86900; 86901; 93979; 96361; 96374; 96375; 96376; 99285; G0378; J1170; J2405; J7030; Q9967